=== PATIENT | female | born 1965 | race Caucasian/White ===

== ENCOUNTER 2020-06-03 10:31 | Outpatient (CLI) | payer OTHER ==
--- NOTE | 2020-06-03 11:57 | RAD ---
LUMBAR SPINE 3 VIEWS: Date: 06/03/2020 HISTORY: Back pain. Right flank pain. FINDINGS: Lumbar vertebra maintain normal height and alignment. The disc spaces are preserved. Minimal degenera tive spurring. No spondylolisthesis or spondylolysis. IMPRESSION: Unremarkable lumbar spine. POS: AH
--- NOTE | 2020-06-03 11:57 | RAD ---
RIGHT HIP 2 VIEWS: Date: 06/03/2020 HISTORY: Hip pain and right flank pain. FINDINGS: Femoral head contour is normal. No fracture or acute osseous lesion. No significant degenerative kim ge. IMPRESSION: Unremarkable right hip. POS: AH
--- NOTE | 2020-06-03 11:58 | RAD ---
AP PELVIS 1 VIEW: Date: 06/03/2020 HISTORY: Right hip pain and right flank pain. FINDINGS: Mild degenerative and osteoarthrosis changes of the SI joints and both hip joints. No fracture or dis location. IMPRESSION: Mild degenerative and osteoarthrosis change without fracture or dislocation. POS: RRE
--- NOTE | 2020-06-03 11:59 | RAD ---
ABDOMEN 1 VIEW: Date: 06/03/2020 HISTORY: Right flank pain and right hip pain. FINDINGS/IMPRESSION: Gas pattern is unremarkable. There is some fecal material in the colon. No large or small bowel obstr uction. No overt calculus. IMPRESSION: Unremarkable KUB. No overt calculus. There are multiple calcified phleboliths in the pelvis. If a ureteral calculus is a clinical concern, a follow-up noncontrast abdomen and pelvic CT scan should be considered. POS: RRE
== END 2020-06-03 10:32 | disposition home or self-care (01) ==
LOC: NAV RAD 10:31
PROVIDERS: ATTEND Family Medicine
DX: R10.9 Unspecified abdominal pain (principal); M16.11 Unilateral primary osteoarthritis, right hip
CPT/HCPCS: 72100; 72170; 74018

== ENCOUNTER 2022-09-10 16:20 | Outpatient (CLI) | payer BC | END 2022-09-10 16:21 | disposition home or self-care (01) | LOC: NAV RAD 16:20 | PROVIDERS: ATTEND Family Medicine | DX: S76.911A Strain of unspecified muscles, fascia and tendons at thigh level, right thigh, initial encounter (principal) | CPT/HCPCS: 72170 ==